=== PATIENT | female | born 1960 | race African-American/Black ===

== ENCOUNTER 2022-03-31 10:36 | Emergency (ER) | payer MEDICAID, OTHER ==
[~2022-03-31] VITALS: Ht 160 cm; Wt 72.0 kg
[~2022-03-31 10:36] MED LIST: RISP1TAB97 PO; SERT-422 PO
[2022-03-31 11:03] VITALS: BP 94/60
== END 2022-03-31 15:48 | disposition left against medical advice (07) ==
LOC: ER 10:36
DX: Z53.21 Procedure and treatment not carried out due to patient leaving prior to being seen by health care provider (principal)

== ENCOUNTER 2022-04-18 12:42 | Emergency (ER) | payer MEDICAID, OTHER ==
[~2022-04-18] VITALS: Ht 160 cm; Wt 71.0 kg
[2022-04-18] MEDS ORDERED: ONDANSETRON HCL 4MG/2ML INJ IV STA (15:37)
[2022-04-18] MEDS ORDERED: MORPHINE SULFATE 4 MG/ML CPJ (NOT FOR IM USE) IV STA (15:37)
[2022-04-18] MEDS ORDERED: SODIUM CHLORIDE 0.9% 1000ML BAG (SEPSIS BOLUS) IV ONE (15:45)
[2022-04-18] MEDS ORDERED: PIPERACILLIN/TAZ 3.375G PREMIX 50 ML IV SCH (15:45)
[2022-04-18] MEDS ORDERED: VANCOMYCIN 1G PREMIX 200 ML IV SCH (15:45)
[2022-04-18] MEDS ORDERED: TETANUS, DIPHTHERIA, PERTUSSIS VAC/PF 0.5ML (>10YR OLD) IM ONE (16:00)
[2022-04-18 16:48] LABS: BASOPHILS % 1.1 % (0.0-2.0); CHLORIDE 107 mEq/L (98-107); EOSINOPHILS % 3.5 % (0.0-5.0); HEMATOCRIT. 40.6 % (36.0-48.0); HEMOGLOBIN. 13.6 g/dL (12.0-16.0); LYMPHOCYTES % 35.5 % (20.0-50.0); MEAN CORPUSCULAR HEMOGLOBIN 30.2 pg (28.0-32.0); MEAN CORPUSCULAR VOLUME 90.1 fL (81.0-99.0); MEAN PLATELET VOLUME 7.5 fl (7.4-10.4); MONOCYTES % 7.7 % (2.0-8.0); NEUTROPHILS % 52.2 % (40.0-76.0); PLATELET 377 x1000/uL (130-400); RED BLOOD CELL COUNT 4.51 mill/uL (4.2-5.4); RED CELL DISTRIBUTION WIDTH 13.5 % (11.6-14.6)
[2022-04-18 16:51] LABS: INR 0.9; PARTIAL THROMBOPLASTIN TIME 24.2 sec (23.4-31.0); PROTHROMBIN TIME 10.1 sec (9.6-11.0)
[2022-04-18 19:38] VITALS: BP 151/79
== END 2022-04-18 20:10 | disposition short-term general hospital (02) ==
LOC: ER 12:42 → CANBEDREQ 04-19 13:45
DX: M86.141 Other acute osteomyelitis, right hand (principal); Z20.822 Contact with and (suspected) exposure to COVID-19
CPT/HCPCS: 29130; 36415; 73140; 80053; 83605; 85025; 85610; 85730; 86850; 86900; 86901; 87040; 87426; 90471; 90715; 96365; 96366; 96368; 96375; 99285; C9803; J2270; J2405; J2543; J3370; J7030